=== PATIENT | male | born 1950 | race Asian ===

== ENCOUNTER → 2016-12-08 | Outpatient (CLI) | payer BC ==
--- NOTE | 2016-12-08 19:35 | DX ---
Sinus, 2 Views History: J32.9, chronic sinusitis. Findings: Nasal septal deviation to the right. Suggestion of peripheral mucosal thickening left maxil carrie sinus. No evidence of air-fluid levels. No definite bilateral frontal or right maxillary sinusit is. Impression: Left maxillary sinusitis.
== END ==
LOC: EDSTATUS 11:37 → FIMAGING 17:03
PROVIDERS: ATTEND Otolaryngology
DX: J32.0 Chronic maxillary sinusitis (principal)